=== PATIENT | female | born 1965 | race Two or more races ===

== ENCOUNTER 2019-04-25 13:31 | Outpatient (CLI) | payer OTHER ==
[~2019-04-25] VITALS: Ht 167.6 cm; Wt 83.5 kg
== END 2019-04-25 13:45 | disposition home or self-care (01) ==
LOC: OFIC 805 13:31
DX: J30.89 Other allergic rhinitis (principal); R09.81 Nasal congestion; G50.0 Trigeminal neuralgia

== ENCOUNTER 2020-10-09 13:05 | Emergency (ER) | payer OTHER ==
[~2020-10-09] VITALS: Ht 167.6 cm; Wt 80.3 kg
[2020-10-09] MEDS ORDERED: PROAIR HFA8.5 GM (13:11)
[2020-10-09] MEDS ORDERED: ANORO ELLIPTA1 EACH (13:13)
[2020-10-09] MEDS ORDERED: YUPELRI175 MCG/3 (13:14)
[2020-10-09] MEDS ORDERED: ZITHROMAX500 MG PO (16:34)
== END 2020-10-09 16:43 | disposition home or self-care (01) ==
LOC: ER 13:05
DX: R05 Cough (principal); B96.0 Mycoplasma pneumoniae [M. pneumoniae] as the cause of diseases classified elsewhere; Z03.818 Encounter for observation for suspected exposure to other biological agents ruled out